=== PATIENT | male | born 1985 | race Two or more races ===

== ENCOUNTER 2018-02-13 19:19 | Emergency (ER) | payer MEDICAID ==
[~2018-02-13] VITALS: Ht 180.3 cm; Wt 81.0 kg
[2018-02-13 20:31] LABS: BASOPHILS # (AUTO) 0.04 x10^3/uL (0-0.1); BASOPHILS % (AUTO) 1 % (0-1); EOSINOPHILS # (AUTO) 0.28 x10^3/uL (0-0.4); EOSINOPHILS % (AUTO) 4 % (1-7); LYMPHOCYTES # (AUTO) 3.03 x10^3/uL (1-3.4); LYMPHOCYTES % (AUTO) 43 % (22-44); MD NO; MEAN CORPUSCULAR HEMOGLOBIN 30.1 pg (27.5-34.5); MEAN CORPUSCULAR HGB CONC 33.6 g/dL (33.2-36.2); MEAN CORPUSCULAR VOLUME 89.5 fL (81-97); MEAN PLATELET VOLUME 7.3 fL (7.4-10.4); MONOCYTES # (AUTO) 0.74 x10^3/uL (0.2-0.8); MONOCYTES % (AUTO) 11 % (2-9); NEUTROPHILS # (AUTO) 2.89 x10^3/uL (1.8-6.8); NEUTROPHILS % (AUTO) 41 % (42-75); PLATELET COUNT 354 x10^3/uL (130-400); RED BLOOD COUNT 4.64 x10^6/uL (4.38-5.82); RED CELL DISTRIBUTION WIDTH 13.7 % (9.4-14.8)
[2018-02-13 20:35] LABS: ALANINE AMINOTRANSFERASE 35 U/L (12-78); ALBUMIN 3.6 g/dL (3.4-5.0); ANION GAP 5 mmol/L (5-15); CALCIUM 9.1 mg/dL (8.5-10.1); CHLORIDE 105 mmol/L (98-107); CREATININE 1.03 mg/dL (0.7-1.3)
[2018-02-13 20:37] LABS: ALKALINE PHOSPHATASE 49 U/L (45-117); BILIRUBIN,TOTAL 0.2 mg/dL (0.2-1.0); TOTAL PROTEIN 7.8 g/dL (6.4-8.2)
[2018-02-13 21:21] VITALS: BP 108/76
[2018-02-13 21:34] LABS: MICROSCOPIC AUTO
[2018-02-13 21:37] LABS: CULTURE INDICATED? NO
== END 2018-02-13 21:31 | disposition home or self-care (01) ==
LOC: ED 21:25
DX: K59.00 Constipation, unspecified (principal); R10.84 Generalized abdominal pain
CPT/HCPCS: 36415; 74021; 80053; 81001; 83690; 85025; 99285

== ENCOUNTER 2018-02-17 06:57 | Emergency (ER) | payer MEDICAID ==
[~2018-02-17] VITALS: Ht 180.3 cm; Wt 80.2 kg
[2018-02-17 07:44] LABS: MICROSCOPIC NOT IND
[2018-02-17 07:53] VITALS: BP 115/48
[2018-02-17 08:00] LABS: CULTURE INDICATED? NO
[2018-02-17 08:12] LABS: ALANINE AMINOTRANSFERASE 30 U/L (12-78); ALBUMIN 3.5 g/dL (3.4-5.0); ANION GAP 4 mmol/L (5-15); CALCIUM 8.3 mg/dL (8.5-10.1); CHLORIDE 107 mmol/L (98-107); CREATININE 0.81 mg/dL (0.7-1.3)
[2018-02-17 08:15] LABS: ALKALINE PHOSPHATASE 43 U/L (45-117); BILIRUBIN,TOTAL 0.3 mg/dL (0.2-1.0); TOTAL PROTEIN 7.1 g/dL (6.4-8.2)
[2018-02-17 08:17] LABS: BASOPHILS # (AUTO) 0.11 x10^3/uL (0-0.1); BASOPHILS % (AUTO) 2 % (0-1); EOSINOPHILS # (AUTO) 0.16 x10^3/uL (0-0.4); EOSINOPHILS % (AUTO) 2 % (1-7); LYMPHOCYTES # (AUTO) 2.18 x10^3/uL (1-3.4); LYMPHOCYTES % (AUTO) 31 % (22-44); MD NO; MEAN CORPUSCULAR HEMOGLOBIN 30.5 pg (27.5-34.5); MEAN CORPUSCULAR HGB CONC 33.9 g/dL (33.2-36.2); MEAN CORPUSCULAR VOLUME 89.9 fL (81-97); MEAN PLATELET VOLUME 7.5 fL (7.4-10.4); MONOCYTES % (AUTO) 14 % (2-9); NEUTROPHILS # (AUTO) 3.63 x10^3/uL (1.8-6.8); NEUTROPHILS % (AUTO) 51 % (42-75); PLATELET COUNT 315 x10^3/uL (130-400); RED BLOOD COUNT 4.25 x10^6/uL (4.38-5.82); RED CELL DISTRIBUTION WIDTH 13.5 % (9.4-14.8)
== END 2018-02-17 08:55 | disposition home or self-care (01) ==
LOC: ED 07:26
DX: K59.00 Constipation, unspecified (principal); F17.200 Nicotine dependence, unspecified, uncomplicated
CPT/HCPCS: 36415; 74021; 80053; 81003; 83690; 85025; 99285

== ENCOUNTER 2018-02-17 13:40 | Observation (INO) | payer MEDICAID ==
[~2018-02-17] VITALS: Ht 180.3 cm; Wt 85.0 kg
[2018-02-17 14:49] LABS: MEAN CORPUSCULAR HEMOGLOBIN 30.1 pg (27.5-34.5); MEAN CORPUSCULAR HGB CONC 33.4 g/dL (33.2-36.2); MEAN CORPUSCULAR VOLUME 90.1 fL (81-97); MEAN PLATELET VOLUME 7.2 fL (7.4-10.4); PLATELET COUNT 323 x10^3/uL (130-400); RED BLOOD COUNT 4.41 x10^6/uL (4.38-5.82); RED CELL DISTRIBUTION WIDTH 13.7 % (9.4-14.8)
[2018-02-17 15:02] LABS: ALBUMIN 3.7 g/dL (3.4-5.0); ANION GAP 5 mmol/L (5-15); CALCIUM 8.9 mg/dL (8.5-10.1); CHLORIDE 106 mmol/L (98-107); CREATININE 0.92 mg/dL (0.7-1.3)
[2018-02-17 15:03] LABS: SALICYLATE LEVEL < 1.7 mg/dL (2.8-20.0)
[2018-02-17 15:04] LABS: ACETAMINOPHEN < 2 mcg/mL (10-30)
[2018-02-17 15:05] LABS: BASOPHILS # (AUTO) 0.06 x10^3/uL (0-0.1); BASOPHILS % (AUTO) 1 % (0-1); EOSINOPHILS # (AUTO) 0.19 x10^3/uL (0-0.4); EOSINOPHILS % (AUTO) 3 % (1-7); LYMPHOCYTES # (AUTO) 2.14 x10^3/uL (1-3.4); LYMPHOCYTES % (AUTO) 30 % (22-44); MD SCAN; MONOCYTES # (AUTO) 0.93 x10^3/uL (0.2-0.8); MONOCYTES % (AUTO) 13 % (2-9); NEUTROPHILS # (AUTO) 3.84 x10^3/uL (1.8-6.8); NEUTROPHILS % (AUTO) 54 % (42-75)
[2018-02-17] MEDS ORDERED: LORazepam 1MG TABLET PO ONE (15:30)
[2018-02-17] MEDS ORDERED: LORazepam 1MG TABLET ONE (15:42)
[2018-02-18 00:03] LABS: AMPHETAMINE SCREEN, URINE Negative (Negative); BARBITURATE SCREEN, URINE Negative (Negative); BENZODIAZEPINE SCREEN, URINE Negative (Negative); CANNABINOID SCREEN, URINE Negative (Negative); COCAINE SCREEN, URINE Negative (Negative); METHADONE SCREEN, URINE Negative (Negative); OPIATE SCREEN, URINE Negative (Negative)
[2018-02-18] MEDS ORDERED: POLYETHYLENE GLYCOL 17 GM PACKET PO PRN (11:00)
[2018-02-18] MEDS ORDERED: ACETAMINOPHEN 325 MG TABLET ONE ×2 (11:46→18:30)
[2018-02-18] MEDS: ACETAMINOPHEN 325 MG TABLET PO PRN ×2 (11:48→18:30)
[2018-02-18 19:49] LABS: MICROSCOPIC NOT IND
[2018-02-18] MEDS ORDERED: LORazepam 1MG TABLET ONE (19:51)
[2018-02-18] MEDS: LORazepam 1MG TABLET PO PRN (19:53)
[2018-02-18 19:55] LABS: CULTURE INDICATED? NO
[2018-02-18] MEDS ORDERED: NICOTINE 7 MG/24 HR PATCH.TD24 ONE (20:03)
[2018-02-18] MEDS: NICOTINE 7 MG/24 HR PATCH.TD24 TD SCH (20:04)
[2018-02-19] MEDS ORDERED: ACETAMINOPHEN 325 MG TABLET ONE (09:26)
[2018-02-19] MEDS ORDERED: LORazepam 1MG TABLET ONE ×2 (09:27→15:42)
[2018-02-19] MEDS: LORazepam 1MG TABLET PO PRN ×2 (09:29→15:44)
[2018-02-19] MEDS: ACETAMINOPHEN 325 MG TABLET PO PRN (09:30)
[2018-02-19] MEDS ORDERED: NICOTINE 7 MG/24 HR PATCH.TD24 ONE (15:45)
[2018-02-19] MEDS: NICOTINE 7 MG/24 HR PATCH.TD24 TD SCH (15:48)
[2018-02-19] MEDS ORDERED: HEPARIN 5,000 UNITS/ML, 1ML ONE (19:18)
[2018-02-19] MEDS: HEPARIN 5,000 UNITS/ML, 1ML SQ SCH (19:20)
[2018-02-20] MEDS: HEPARIN 5,000 UNITS/ML, 1ML SQ SCH (01:00)
[2018-02-20] MEDS ORDERED: ACETAMINOPHEN 325 MG TABLET ONE (09:42)
[2018-02-20] MEDS: ACETAMINOPHEN 325 MG TABLET PO PRN (10:03)
[2018-02-20] MEDS: NICOTINE 7 MG/24 HR PATCH.TD24 TD SCH (11:00)
[2018-02-20] MEDS: ENOXAPARIN 40 MG/0.4 ML SQ SCH (11:30)
[2018-02-20] MEDS: CYCLOBENZAPRINE 10 MG TABLET PO SCH ×3 (11:30→21:00)
[2018-02-20] MEDS ORDERED: CYCLOBENZAPRINE 10 MG TABLET ONE (14:40)
[2018-02-20] MEDS ORDERED: ENOXAPARIN 40 MG/0.4 ML ONE (14:40)
[2018-02-20] MEDS ORDERED: NICOTINE 7 MG/24 HR PATCH.TD24 ONE (14:41)
[2018-02-20] MEDS ORDERED: LORazepam 1MG TABLET ONE (14:41)
[2018-02-20] MEDS: LORazepam 1MG TABLET PO PRN (14:52)
[2018-02-21] MEDS ORDERED: CYCLOBENZAPRINE 10 MG TABLET ONE ×2 (09:04→16:25)
[2018-02-21] MEDS: CYCLOBENZAPRINE 10 MG TABLET PO SCH ×3 (09:18→21:06)
[2018-02-21] MEDS ORDERED: ENOXAPARIN 40 MG/0.4 ML ONE (12:21)
[2018-02-21] MEDS ORDERED: NICOTINE 7 MG/24 HR PATCH.TD24 ONE (12:22)
[2018-02-21] MEDS: ENOXAPARIN 40 MG/0.4 ML SQ SCH (12:25)
[2018-02-21] MEDS: NICOTINE 7 MG/24 HR PATCH.TD24 TD SCH (12:25)
[2018-02-21 17:17] VITALS: BP 114/71
[2018-02-21] MEDS: ACETAMINOPHEN 325 MG TABLET PO PRN (17:21)
[2018-02-21] MEDS: LORazepam 1MG TABLET PO PRN (17:21)
[2018-02-21 19:42] VITALS: BP_SYST 110; BP_SYST 161; BP_DIAS 73; BP_DIAS 89
[2018-02-22 07:46] VITALS: BP 115/72
[2018-02-22] MEDS: LORazepam 1MG TABLET PO PRN ×2 (08:40→20:07)
[2018-02-22] MEDS: CYCLOBENZAPRINE 10 MG TABLET PO SCH ×3 (08:41→20:07)
[2018-02-22] MEDS: NICOTINE 7 MG/24 HR PATCH.TD24 TD SCH (08:43)
[2018-02-22] MEDS: ENOXAPARIN 40 MG/0.4 ML SQ SCH (11:38)
[2018-02-22] MEDS: ACETAMINOPHEN 325 MG TABLET PO PRN (14:00)
[2018-02-22] MEDS: ARIPIPRAZOLE 10 MG TABLET PO SCH (14:04)
[2018-02-22] MEDS ORDERED: HALOPERIDOL 5 MG/ML ONE (14:32)
[2018-02-22] MEDS: HALOPERIDOL 5 MG/ML IM PRN (14:42)
[2018-02-22 19:12] VITALS: BP 99/63
[2018-02-23 08:03] VITALS: BP 125/68
[2018-02-23] MEDS: CYCLOBENZAPRINE 10 MG TABLET PO SCH ×3 (08:59→21:09)
[2018-02-23] MEDS: LORazepam 1MG TABLET PO PRN ×2 (08:59→16:39)
[2018-02-23] MEDS: ARIPIPRAZOLE 10 MG TABLET PO SCH (08:59)
[2018-02-23] MEDS: ENOXAPARIN 40 MG/0.4 ML SQ SCH (11:30)
[2018-02-23] MEDS: NICOTINE 7 MG/24 HR PATCH.TD24 TD SCH (12:28)
[2018-02-23 19:54] VITALS: BP 132/87
[2018-02-24 07:44] VITALS: BP 96/62
[2018-02-24] MEDS: ARIPIPRAZOLE 10 MG TABLET PO SCH (08:39)
[2018-02-24] MEDS: CYCLOBENZAPRINE 10 MG TABLET PO SCH ×3 (08:39→21:14)
[2018-02-24] MEDS: LORazepam 1MG TABLET PO PRN ×2 (09:06→15:09)
[2018-02-24] MEDS: NICOTINE 7 MG/24 HR PATCH.TD24 TD SCH (11:34)
[2018-02-24] MEDS: ENOXAPARIN 40 MG/0.4 ML SQ SCH (11:35)
[2018-02-24 21:01] VITALS: BP 95/61
[2018-02-24 21:11] VITALS: BP 115/85
[2018-02-25 08:18] VITALS: BP 121/78
[2018-02-25] MEDS: ARIPIPRAZOLE 10 MG TABLET PO SCH (08:21)
[2018-02-25] MEDS: CYCLOBENZAPRINE 10 MG TABLET PO SCH ×3 (08:21→20:55)
[2018-02-25] MEDS: LORazepam 1MG TABLET PO PRN ×2 (08:25→16:26)
[2018-02-25] MEDS: ENOXAPARIN 40 MG/0.4 ML SQ SCH (08:37)
[2018-02-25] MEDS: NICOTINE 7 MG/24 HR PATCH.TD24 TD SCH (11:57)
[2018-02-25 19:14] VITALS: BP 110/69
[2018-02-26 07:49] VITALS: BP 105/67
[2018-02-26] MEDS: CYCLOBENZAPRINE 10 MG TABLET PO SCH ×3 (08:06→20:51)
[2018-02-26] MEDS: ENOXAPARIN 40 MG/0.4 ML SQ SCH (08:06)
[2018-02-26] MEDS: LORazepam 1MG TABLET PO PRN ×2 (08:06→13:23)
[2018-02-26] MEDS: ARIPIPRAZOLE 10 MG TABLET PO SCH (08:06)
[2018-02-26] MEDS: NICOTINE 7 MG/24 HR PATCH.TD24 TD SCH (11:38)
[2018-02-26] MEDS: HALOPERIDOL 5 MG/ML IM PRN (19:12)
[2018-02-26 19:28] VITALS: BP 112/73
[2018-02-27 08:17] VITALS: BP 126/82
[2018-02-27] MEDS: ENOXAPARIN 40 MG/0.4 ML SQ SCH (08:44)
[2018-02-27] MEDS: ARIPIPRAZOLE 10 MG TABLET PO SCH (08:45)
[2018-02-27] MEDS: CYCLOBENZAPRINE 10 MG TABLET PO SCH ×3 (08:45→20:39)
[2018-02-27] MEDS: LORazepam 1MG TABLET PO PRN ×2 (08:57→18:18)
[2018-02-27] MEDS: NICOTINE 7 MG/24 HR PATCH.TD24 TD SCH (10:37)
[2018-02-27] MEDS: QUETIAPINE 25MG TABLET PO PRN (14:57)
[2018-02-27 19:36] VITALS: BP 126/85
[2018-02-27] MEDS ORDERED: QUETIAPINE 100MG TABLET PO SCH (21:00)
[2018-02-28 07:57] VITALS: BP 112/72
[2018-02-28] MEDS: CYCLOBENZAPRINE 10 MG TABLET PO SCH ×3 (08:34→20:06)
[2018-02-28] MEDS: LORazepam 1MG TABLET PO PRN ×3 (08:34→21:07)
[2018-02-28] MEDS: ACETAMINOPHEN 325 MG TABLET PO PRN (08:34)
[2018-02-28] MEDS: ENOXAPARIN 40 MG/0.4 ML SQ SCH (08:38)
[2018-02-28] MEDS: NICOTINE 7 MG/24 HR PATCH.TD24 TD SCH (11:03)
[2018-02-28] MEDS: QUETIAPINE 25MG TABLET PO PRN ×2 (11:34→20:05)
[2018-02-28] MEDS ORDERED: QUETIAPINE 25MG TABLET PO ONE (14:30)
[2018-02-28 16:31] VITALS: BP 117/78
[2018-02-28 18:20] LABS: MEAN CORPUSCULAR HEMOGLOBIN 30.8 pg (27.5-34.5); MEAN CORPUSCULAR HGB CONC 33.8 g/dL (33.2-36.2); MEAN PLATELET VOLUME 7.3 fL (7.4-10.4); PLATELET COUNT 314 x10^3/uL (130-400); RED BLOOD COUNT 4.66 x10^6/uL (4.38-5.82); RED CELL DISTRIBUTION WIDTH 13.8 % (9.4-14.8)
[2018-02-28 18:47] LABS: BASOPHILS # (AUTO) 0.15 x10^3/uL (0-0.1); BASOPHILS % (AUTO) 2 % (0-1); EOSINOPHILS # (AUTO) 0.28 x10^3/uL (0-0.4); EOSINOPHILS % (AUTO) 3 % (1-7); LYMPHOCYTES # (AUTO) 3.63 x10^3/uL (1-3.4); LYMPHOCYTES % (AUTO) 42 % (22-44); MD SCAN; MONOCYTES # (AUTO) 1.25 x10^3/uL (0.2-0.8); MONOCYTES % (AUTO) 15 % (2-9); NEUTROPHILS # (AUTO) 3.28 x10^3/uL (1.8-6.8); NEUTROPHILS % (AUTO) 38 % (42-75)
[2018-02-28 19:30] VITALS: BP 120/77
[2018-02-28] MEDS: QUETIAPINE 100MG TABLET PO SCH (20:04)
[2018-03-01] MEDS: QUETIAPINE 25MG TABLET PO PRN ×2 (02:53→08:53)
[2018-03-01 08:13] VITALS: BP 116/81
[2018-03-01] MEDS: CYCLOBENZAPRINE 10 MG TABLET PO SCH ×3 (08:53→20:33)
[2018-03-01] MEDS: ENOXAPARIN 40 MG/0.4 ML SQ SCH (08:53)
[2018-03-01] MEDS: LORazepam 1MG TABLET PO PRN ×3 (10:57→21:49)
[2018-03-01] MEDS: HALOPERIDOL 5 MG/ML IM PRN (10:57)
[2018-03-01] MEDS: NICOTINE 7 MG/24 HR PATCH.TD24 TD SCH (16:00)
[2018-03-01 20:25] VITALS: BP 109/66
[2018-03-01] MEDS: QUETIAPINE 100MG TABLET PO SCH (20:34)
[2018-03-01] MEDS: ACETAMINOPHEN 325 MG TABLET PO PRN (22:37)
[2018-03-02] MEDS: LORazepam 1MG TABLET PO PRN ×2 (02:19→17:21)
[2018-03-02] MEDS: ACETAMINOPHEN 325 MG TABLET PO PRN ×2 (02:20→07:19)
[2018-03-02 07:06] VITALS: BP 107/68
[2018-03-02] MEDS: QUETIAPINE 25MG TABLET PO PRN (07:20)
[2018-03-02] MEDS: CYCLOBENZAPRINE 10 MG TABLET PO SCH ×3 (08:28→21:34)
[2018-03-02] MEDS: ENOXAPARIN 40 MG/0.4 ML SQ SCH (08:31)
[2018-03-02] MEDS: AMOXICILLIN/CLAV 875-125MG TABLET PO SCH ×2 (09:00→21:34)
[2018-03-02] MEDS: QUETIAPINE 100MG TABLET PO SCH ×2 (12:30→21:35)
[2018-03-02 12:47] LABS: TROPONIN I < 0.015 ng/mL (0.000-0.045)
[2018-03-02] MEDS: HALOPERIDOL 5 MG/ML IM PRN ×2 (13:35→18:04)
[2018-03-02 16:07] LABS: TROPONIN I < 0.015 ng/mL (0.000-0.045)
[2018-03-02] MEDS: NICOTINE 7 MG/24 HR PATCH.TD24 TD SCH (16:51)
[2018-03-02 21:40] VITALS: BP 113/69
[2018-03-03 07:52] VITALS: BP 117/73
[2018-03-03] MEDS: CYCLOBENZAPRINE 10 MG TABLET PO SCH ×3 (08:11→20:55)
[2018-03-03] MEDS: QUETIAPINE 100MG TABLET PO SCH ×3 (08:11→16:17)
[2018-03-03] MEDS: AMOXICILLIN/CLAV 875-125MG TABLET PO SCH ×2 (08:11→21:12)
[2018-03-03] MEDS: ENOXAPARIN 40 MG/0.4 ML SQ SCH (08:11)
[2018-03-03] MEDS: LORazepam 1MG TABLET PO PRN ×3 (09:03→20:56)
[2018-03-03 12:43] LABS: HCT (SEDRATE) 41.7 % (39.2-51.8)
[2018-03-03 12:56] LABS: ANION GAP 8 mmol/L (5-15); CALCIUM 8.9 mg/dL (8.5-10.1); CHLORIDE 106 mmol/L (98-107)
[2018-03-03 12:57] LABS: ALBUMIN 3.4 g/dL (3.4-5.0)
[2018-03-03 13:01] LABS: ALANINE AMINOTRANSFERASE 144 U/L (12-78); ALKALINE PHOSPHATASE 48 U/L (45-117); BILIRUBIN,TOTAL 0.3 mg/dL (0.2-1.0); CREATININE 0.92 mg/dL (0.7-1.3); HIGH-SENSITIVITY CRP 0.08 mg/dL (0.02-0.30); TOTAL PROTEIN 7.5 g/dL (6.4-8.2)
[2018-03-03 13:09] LABS: BASOPHILS # (AUTO) 0.08 x10^3/uL (0-0.1); BASOPHILS % (AUTO) 1 % (0-1); EOSINOPHILS # (AUTO) 0.16 x10^3/uL (0-0.4); EOSINOPHILS % (AUTO) 2 % (1-7); LYMPHOCYTES # (AUTO) 3.24 x10^3/uL (1-3.4); LYMPHOCYTES % (AUTO) 45 % (22-44); MD NO; MEAN CORPUSCULAR HEMOGLOBIN 30.8 pg (27.5-34.5); MEAN CORPUSCULAR HGB CONC 33.9 g/dL (33.2-36.2); MEAN PLATELET VOLUME 7.6 fL (7.4-10.4); MONOCYTES % (AUTO) 10 % (2-9); NEUTROPHILS # (AUTO) 2.97 x10^3/uL (1.8-6.8); NEUTROPHILS % (AUTO) 42 % (42-75); PLATELET COUNT 312 x10^3/uL (130-400); RED BLOOD COUNT 4.52 x10^6/uL (4.38-5.82); RED CELL DISTRIBUTION WIDTH 14.4 % (9.4-14.8)
[2018-03-03] MEDS: OXYcodone/APAP 5/325MG TABLET PO PRN ×2 (13:45→19:13)
[2018-03-03] MEDS: NICOTINE 7 MG/24 HR PATCH.TD24 TD SCH (14:08)
[2018-03-03 19:30] VITALS: BP 112/70
[2018-03-03] MEDS ORDERED: DIVALPROEX 500 MG TAB.ER.24H PO SCH (21:00)
[2018-03-04] MEDS: OXYcodone/APAP 5/325MG TABLET PO PRN ×2 (02:03→08:53)
[2018-03-04 07:45] VITALS: BP 121/74
[2018-03-04] MEDS ORDERED: AMOXICILLIN/CLAV 875-125MG TABLET ONE (08:41)
[2018-03-04] MEDS: QUETIAPINE 100MG TABLET PO SCH ×3 (08:48→18:37)
[2018-03-04] MEDS: CYCLOBENZAPRINE 10 MG TABLET PO SCH ×3 (08:49→20:29)
[2018-03-04] MEDS: ENOXAPARIN 40 MG/0.4 ML SQ SCH (08:56)
[2018-03-04] MEDS: AMOXICILLIN/CLAV 875-125MG TABLET PO SCH ×2 (09:00→20:31)
[2018-03-04] MEDS: DOCUSATE 100 MG CAPSULE PO PRN (11:20)
[2018-03-04] MEDS ORDERED: OXYcodone/APAP 5/325MG TABLET PO ONE (11:30)
[2018-03-04] MEDS: NICOTINE 7 MG/24 HR PATCH.TD24 TD SCH (15:40)
[2018-03-04] MEDS: LORazepam 1MG TABLET PO PRN (15:40)
[2018-03-04] MEDS ORDERED: MAGNESIUM CITRATE 300ML ORAL SOL PO ONE (19:30)
[2018-03-04 20:06] VITALS: BP 121/76
[2018-03-05] MEDS: OXYcodone/APAP 5/325MG TABLET PO PRN ×2 (00:35→05:04)
[2018-03-05] MEDS: LORazepam 1MG TABLET PO PRN ×2 (00:57→09:32)
[2018-03-05 01:08] VITALS: BP 114/74
[2018-03-05] MEDS: IBUPROFEN 200 MG TABLET PO PRN ×3 (01:43→17:14)
[2018-03-05 05:48] LABS: BASOPHILS # (AUTO) 0.04 x10^3/uL (0-0.1); BASOPHILS % (AUTO) 1 % (0-1); EOSINOPHILS # (AUTO) 0.14 x10^3/uL (0-0.4); EOSINOPHILS % (AUTO) 2 % (1-7); LYMPHOCYTES # (AUTO) 3.26 x10^3/uL (1-3.4); LYMPHOCYTES % (AUTO) 52 % (22-44); MD NO; MEAN CORPUSCULAR HEMOGLOBIN 30.5 pg (27.5-34.5); MEAN CORPUSCULAR HGB CONC 33.7 g/dL (33.2-36.2); MEAN CORPUSCULAR VOLUME 90.4 fL (81-97); MEAN PLATELET VOLUME 7.3 fL (7.4-10.4); MONOCYTES # (AUTO) 0.91 x10^3/uL (0.2-0.8); MONOCYTES % (AUTO) 15 % (2-9); NEUTROPHILS # (AUTO) 1.95 x10^3/uL (1.8-6.8); NEUTROPHILS % (AUTO) 31 % (42-75); PLATELET COUNT 281 x10^3/uL (130-400); RED BLOOD COUNT 4.23 x10^6/uL (4.38-5.82); RED CELL DISTRIBUTION WIDTH 14.5 % (9.4-14.8)
[2018-03-05 05:51] LABS: CHLORIDE 104 mmol/L (98-107)
[2018-03-05 06:04] LABS: ALANINE AMINOTRANSFERASE 155 U/L (12-78); ALBUMIN 3.2 g/dL (3.4-5.0); ALKALINE PHOSPHATASE 46 U/L (45-117); ANION GAP 5 mmol/L (5-15); BILIRUBIN,TOTAL 0.2 mg/dL (0.2-1.0); CREATININE 0.94 mg/dL (0.7-1.3); TOTAL PROTEIN 6.9 g/dL (6.4-8.2)
[2018-03-05 07:54] VITALS: BP 114/75
[2018-03-05] MEDS: DOCUSATE 100 MG CAPSULE PO PRN (08:49)
[2018-03-05] MEDS: QUETIAPINE 100MG TABLET PO SCH (08:50)
[2018-03-05] MEDS: CYCLOBENZAPRINE 10 MG TABLET PO SCH ×3 (08:50→20:21)
[2018-03-05] MEDS: ENOXAPARIN 40 MG/0.4 ML SQ SCH (09:00)
[2018-03-05] MEDS: AMOXICILLIN/CLAV 875-125MG TABLET PO SCH ×2 (09:00→19:32)
[2018-03-05] MEDS ORDERED: BENZTROPINE 1 MG/ML, 2 ML IM PRN (09:30)
[2018-03-05 10:29] LABS: MICROSCOPIC NOT IND
[2018-03-05] MEDS ORDERED: MAGNESIUM CITRATE 300ML ORAL SOL PO ONE (11:00)
[2018-03-05] MEDS: MAGNESIUM HYDROXIDE 8%, 30ML UDC PO SCH (12:45)
[2018-03-05] MEDS: HALOPERIDOL 1 MG TABLET PO PRN (12:46)
[2018-03-05 13:02] VITALS: BP 124/79
[2018-03-05] MEDS: ACETAMINOPHEN 325 MG TABLET PO PRN (13:30)
[2018-03-05] MEDS: NICOTINE 7 MG/24 HR PATCH.TD24 TD SCH (17:13)
[2018-03-05 19:32] VITALS: BP 113/71
[2018-03-05] MEDS: AMOXICILLIN/CLAV. 250 MG/5 ML ORAL SUSP PO SCH (20:00)
[2018-03-05] MEDS: DOCUSATE 100 MG CAPSULE PO SCH (20:20)
[2018-03-05] MEDS: BENZTROPINE 1 MG TABLET PO SCH (20:21)
[2018-03-05] MEDS: HALOPERIDOL 5 MG TABLET PO SCH (20:22)
[2018-03-06] MEDS: IBUPROFEN 200 MG TABLET PO PRN ×3 (02:08→20:23)
[2018-03-06] MEDS: HALOPERIDOL 5 MG/ML IM PRN (02:08)
[2018-03-06 02:28] VITALS: BP 104/66
[2018-03-06 07:38] VITALS: BP 104/69
[2018-03-06] MEDS: BENZTROPINE 1 MG TABLET PO SCH ×2 (08:56→20:22)
[2018-03-06] MEDS: ENOXAPARIN 40 MG/0.4 ML SQ SCH (08:56)
[2018-03-06] MEDS: HALOPERIDOL 5 MG TABLET PO SCH ×2 (08:57→20:23)
[2018-03-06] MEDS: CYCLOBENZAPRINE 10 MG TABLET PO SCH ×3 (08:57→20:23)
[2018-03-06] MEDS: AMOXICILLIN/CLAV. 250 MG/5 ML ORAL SUSP PO SCH ×2 (08:59→20:22)
[2018-03-06] MEDS: MAGNESIUM HYDROXIDE 8%, 30ML UDC PO SCH (09:00)
[2018-03-06] MEDS: DOCUSATE 100 MG CAPSULE PO SCH ×2 (09:00→20:23)
[2018-03-06] MEDS: ACETAMINOPHEN 325 MG TABLET PO PRN (13:42)
[2018-03-06] MEDS: NICOTINE 7 MG/24 HR PATCH.TD24 TD SCH (13:44)
[2018-03-06 20:14] VITALS: BP 118/67
[2018-03-07 04:26] VITALS: BP 108/70
[2018-03-07 07:51] VITALS: BP 102/70
[2018-03-07] MEDS ORDERED: MAGNESIUM CITRATE 300ML ORAL SOL PO ONE (09:00)
[2018-03-07] MEDS: MAGNESIUM HYDROXIDE 8%, 30ML UDC PO SCH (09:00)
[2018-03-07] MEDS: CYCLOBENZAPRINE 10 MG TABLET PO SCH ×3 (09:41→21:49)
[2018-03-07] MEDS: BENZTROPINE 1 MG TABLET PO SCH ×2 (09:41→21:48)
[2018-03-07] MEDS: HALOPERIDOL 5 MG TABLET PO SCH ×2 (09:41→21:49)
[2018-03-07] MEDS: DOCUSATE 100 MG CAPSULE PO SCH (09:41)
[2018-03-07] MEDS: AMOXICILLIN/CLAV. 250 MG/5 ML ORAL SUSP PO SCH ×2 (09:42→21:48)
[2018-03-07] MEDS: IBUPROFEN 200 MG TABLET PO PRN ×2 (10:37→18:10)
[2018-03-07] MEDS: ENOXAPARIN 40 MG/0.4 ML SQ SCH (10:37)
[2018-03-07] MEDS: NICOTINE 7 MG/24 HR PATCH.TD24 TD SCH (13:37)
[2018-03-07 14:39] VITALS: BP 94/57
[2018-03-07] MEDS: HALOPERIDOL 1 MG TABLET PO PRN (18:10)
[2018-03-07 21:27] VITALS: BP 119/57
[2018-03-07] MEDS: ACETAMINOPHEN 325 MG TABLET PO PRN (21:49)
[2018-03-08 02:30] VITALS: BP 114/65
[2018-03-08] MEDS: IBUPROFEN 200 MG TABLET PO PRN ×3 (04:31→18:06)
[2018-03-08 07:50] VITALS: BP 107/70
[2018-03-08] MEDS: MAGNESIUM HYDROXIDE 8%, 30ML UDC PO SCH (09:00)
[2018-03-08] MEDS: AMOXICILLIN/CLAV. 250 MG/5 ML ORAL SUSP PO SCH ×2 (09:40→20:00)
[2018-03-08] MEDS: ACETAMINOPHEN 325 MG TABLET PO PRN ×2 (09:42→16:07)
[2018-03-08] MEDS: HALOPERIDOL 5 MG TABLET PO SCH ×3 (09:43→20:41)
[2018-03-08] MEDS: BENZTROPINE 1 MG TABLET PO SCH ×2 (09:44→20:42)
[2018-03-08] MEDS: CYCLOBENZAPRINE 10 MG TABLET PO SCH ×3 (09:44→20:41)
[2018-03-08] MEDS: ENOXAPARIN 40 MG/0.4 ML SQ SCH (09:45)
[2018-03-08 12:49] VITALS: BP 106/73
[2018-03-08] MEDS: NICOTINE 7 MG/24 HR PATCH.TD24 TD SCH (13:41)
[2018-03-08 16:00] VITALS: BP 138/81
[2018-03-08 17:00] VITALS: BP 120/77
[2018-03-08 19:27] VITALS: BP 118/79
[2018-03-09] MEDS: IBUPROFEN 200 MG TABLET PO PRN ×2 (06:29→14:59)
[2018-03-09 07:09] VITALS: BP 108/72
[2018-03-09] MEDS: ENOXAPARIN 40 MG/0.4 ML SQ SCH (08:34)
[2018-03-09] MEDS: HALOPERIDOL 5 MG TABLET PO SCH ×3 (08:35→19:35)
[2018-03-09] MEDS: CYCLOBENZAPRINE 10 MG TABLET PO SCH ×3 (08:35→19:35)
[2018-03-09] MEDS: AMOXICILLIN/CLAV. 250 MG/5 ML ORAL SUSP PO SCH ×2 (08:35→19:34)
[2018-03-09] MEDS: BENZTROPINE 1 MG TABLET PO SCH ×2 (08:35→19:35)
[2018-03-09] MEDS: MAGNESIUM HYDROXIDE 8%, 30ML UDC PO SCH (08:43)
[2018-03-09] MEDS: ACETAMINOPHEN 325 MG TABLET PO PRN (09:36)
[2018-03-09] MEDS: NICOTINE 7 MG/24 HR PATCH.TD24 TD SCH (14:09)
[2018-03-09 16:00] VITALS: BP 117/76
[2018-03-09 19:49] VITALS: BP 119/78
[2018-03-10] MEDS: AMOXICILLIN/CLAV. 250 MG/5 ML ORAL SUSP PO SCH (07:41)
[2018-03-10] MEDS: HALOPERIDOL 5 MG TABLET PO SCH (07:42)
[2018-03-10 07:58] VITALS: BP 116/73
[2018-03-10] MEDS: CYCLOBENZAPRINE 10 MG TABLET PO SCH (08:29)
[2018-03-10] MEDS: BENZTROPINE 1 MG TABLET PO SCH (08:29)
[2018-03-10] MEDS: ENOXAPARIN 40 MG/0.4 ML SQ SCH (08:30)
[2018-03-10] MEDS: IBUPROFEN 200 MG TABLET PO PRN (08:39)
[2018-03-10] MEDS: MAGNESIUM HYDROXIDE 8%, 30ML UDC PO SCH (09:00)
== END 2018-03-10 12:18 ==
LOC: ED 15:03 → EDIP 02-18 09:50 → 2N 02-21 17:05 → 3NE 03-04 13:10 → 2N 03-08 17:05
PROVIDERS: ADMIT Hospitalist; ATTEND Hospitalist
DX: R45.851 Suicidal ideations (principal); F32.9 Major depressive disorder, single episode, unspecified; F41.0 Panic disorder [episodic paroxysmal anxiety]; K04.7 Periapical abscess without sinus; I10 Essential (primary) hypertension; K59.00 Constipation, unspecified; M54.9 Dorsalgia, unspecified; R10.9 Unspecified abdominal pain; M54.2 Cervicalgia; Z56.0 Unemployment, unspecified; R45.1 Restlessness and agitation; R94.5 Abnormal results of liver function studies
CPT/HCPCS: 0399T; 36415; 72110; 74176; 76700; 80048; 80053; 80307; 80329; 81003; 82040; 84484; 85025; 85651; 86141; 93005; 93306; 96372; 99285; G0378; J1630; J1644; J1650; G0480

== ENCOUNTER 2018-04-30 11:42 | Emergency (ER) | payer MEDICAID ==
[~2018-04-30] VITALS: Ht 180.3 cm; Wt 87.5 kg
[2018-04-30 11:45] VITALS: BP 124/69
[2018-04-30 12:25] LABS: ALANINE AMINOTRANSFERASE 59 U/L (12-78); ALBUMIN 3.6 g/dL (3.4-5.0); ANION GAP 8 mmol/L (5-15); CALCIUM 8.3 mg/dL (8.5-10.1); CHLORIDE 111 mmol/L (98-107); CREATININE 1.09 mg/dL (0.7-1.3)
[2018-04-30 12:26] LABS: ALKALINE PHOSPHATASE 68 U/L (45-117); BASOPHILS # (AUTO) 0.05 x10^3/uL (0-0.1); BASOPHILS % (AUTO) 1 % (0-1); BILIRUBIN,TOTAL 0.4 mg/dL (0.2-1.0); EOSINOPHILS # (AUTO) 0.05 x10^3/uL (0-0.4); EOSINOPHILS % (AUTO) 1 % (1-7); LYMPHOCYTES # (AUTO) 0.68 x10^3/uL (1-3.4); LYMPHOCYTES % (AUTO) 6 % (22-44); MD NO; MEAN CORPUSCULAR HEMOGLOBIN 30.1 pg (27.5-34.5); MEAN CORPUSCULAR HGB CONC 34.1 g/dL (33.2-36.2); MEAN CORPUSCULAR VOLUME 88.3 fL (81-97); MEAN PLATELET VOLUME 7.4 fL (7.4-10.4); MONOCYTES % (AUTO) 5 % (2-9); NEUTROPHILS # (AUTO) 9.82 x10^3/uL (1.8-6.8); NEUTROPHILS % (AUTO) 89 % (42-75); PLATELET COUNT 297 x10^3/uL (130-400); RED BLOOD COUNT 4.86 x10^6/uL (4.38-5.82); RED CELL DISTRIBUTION WIDTH 13.4 % (9.4-14.8); TOTAL PROTEIN 7.9 g/dL (6.4-8.2)
[2018-04-30] MEDS ORDERED: SODIUM CHLORIDE 0.9% 1,000ML IVBOLUS ONE (13:00)
[2018-04-30] MEDS ORDERED: PROCHLORPERAZINE 5 MG/ML, 2ML IVPush ONE (13:00)
[2018-04-30] MEDS ORDERED: PROCHLORPERAZINE 5 MG/ML, 2ML ONE (13:42)
== END 2018-04-30 15:10 | disposition home or self-care (01) ==
LOC: ED 12:44
DX: K52.9 Noninfective gastroenteritis and colitis, unspecified (principal); E86.0 Dehydration
CPT/HCPCS: 36415; 80053; 85025; 96361; 96374; 99284; J0780; J7030

== ENCOUNTER 2018-06-16 06:24 | Emergency (ER) | payer MEDICAID ==
[~2018-06-16] VITALS: Ht 180.3 cm; Wt 90.1 kg
[2018-06-16] MEDS ORDERED: QUET50TA5 PO (06:40)
[2018-06-16] MEDS ORDERED: LORazepam 1MG TABLET PO ONE (07:00)
[2018-06-16] MEDS ORDERED: LORazepam 1MG TABLET ONE (07:04)
[2018-06-16 07:07] VITALS: BP 114/75
[2018-06-16 07:18] LABS: ALANINE AMINOTRANSFERASE 51 U/L (12-78); ALBUMIN 3.8 g/dL (3.4-5.0); ANION GAP 8 mmol/L (5-15); CALCIUM 8.8 mg/dL (8.5-10.1); CHLORIDE 108 mmol/L (98-107); CREATININE 0.95 mg/dL (0.7-1.3)
[2018-06-16 07:19] LABS: SALICYLATE LEVEL < 1.7 mg/dL (2.8-20.0)
[2018-06-16 07:21] LABS: ALKALINE PHOSPHATASE 62 U/L (45-117); BILIRUBIN,TOTAL 0.4 mg/dL (0.2-1.0); TOTAL PROTEIN 8.2 g/dL (6.4-8.2)
[2018-06-16 07:25] LABS: MEAN CORPUSCULAR HEMOGLOBIN 29.9 pg (27.5-34.5); MEAN CORPUSCULAR HGB CONC 33.5 g/dL (33.2-36.2); MEAN CORPUSCULAR VOLUME 89.1 fL (81-97); MEAN PLATELET VOLUME 7.3 fL (7.4-10.4); PLATELET COUNT 412 x10^3/uL (130-400); RED BLOOD COUNT 5.39 x10^6/uL (4.38-5.82); RED CELL DISTRIBUTION WIDTH 14.1 % (9.4-14.8)
[2018-06-16 07:26] LABS: BASOPHILS % (AUTO) 2 % (0-1); EOSINOPHILS # (AUTO) 0.09 x10^3/uL (0-0.4); EOSINOPHILS % (AUTO) 1 % (1-7); LYMPHOCYTES # (AUTO) 2.27 x10^3/uL (1-3.4); LYMPHOCYTES % (AUTO) 33 % (22-44); MD SCAN; MONOCYTES # (AUTO) 0.86 x10^3/uL (0.2-0.8); MONOCYTES % (AUTO) 13 % (2-9); NEUTROPHILS # (AUTO) 3.47 x10^3/uL (1.8-6.8); NEUTROPHILS % (AUTO) 51 % (42-75)
[2018-06-16 07:28] LABS: ACETAMINOPHEN < 2 mcg/mL (10-30)
== END 2018-06-16 13:33 | disposition home or self-care (01) ==
LOC: ED 06:34
DX: F41.1 Generalized anxiety disorder (principal)
CPT/HCPCS: 36415; 80053; 80307; 80329; 85025; 99284; G0480